=== PATIENT | female | born 1975 | race Caucasian/White ===

== ENCOUNTER → 2021-08-13 | Outpatient (CLI) | payer OTHER ==
[~2021-08-13] MED LIST: ACET325 PO; BIRTH CONTROL PATCH; CEPH500 PO; CETI5 PO; CLARITIN10 MG PO; ERGO400 PO; ESOM20; FEXO180; GLYB2.5; HYDACE5 PO; IBUP800 PO; NYST100P TOP; ONDA4ODT MM; PANT20 PO; PROM25 PO; Percocet 5-3251 EACH PO; Prenatal Compl1 EACH; VALA500 PO
== END | disposition home or self-care (01) ==
LOC: LAB SHORT 11:16
DX: M25.511 Pain in right shoulder (principal)
CPT/HCPCS: 87081

== ENCOUNTER → 2022-08-06 | Outpatient (CLI) | payer OTHER ==
[~2022-08-06] MED LIST changes: +ESCITALOPRAM OX10 MG PO; -ESOM20; +ESOM20 PO; +SIME80CH PO; +SLYND4 MG PO; +ZYRTEC10 M1 PO
== END ==
LOC: PLD 15:17 → LAB SHORT 15:17
DX: D23.61 Other benign neoplasm of skin of right upper limb, including shoulder (principal)
CPT/HCPCS: 88305

== ENCOUNTER 2022-10-08 10:22 | Inpatient (IN) | payer OTHER ==
[~2022-10-08] VITALS: Ht 157.5 cm; Wt 122.6 kg
[2022-10-08 11:09] LABS: BASOPHILS ABSOLUTE AUTO 0.03 K/mm3 (0.00-0.23); BASOPHILS PERCENT AUTO 0 % (0-2); EOSINOPHILS PERCENT AUTO 3 % (0-6); Hemoglobin 12.9 g/dL (11.5-16.0); IMMATURE GRAN ABSOLUTE AUTO 0.02 K/mm3 (0.00-0.10); IMMATURE GRAN PERCENT AUTO 0 % (0-1); LYMPHOCYTES ABSOLUTE AUTO 3.07 K/mm3 (0.84-5.20); LYMPHOCYTES PERCENT AUTO 28 % (21-46); MONOCYTES ABSOLUTE AUTO 0.45 K/mm3 (0.16-1.47); MONOCYTES PERCENT AUTO 4 % (4-13); Mean Corpuscular HGB 28.2 pg (26.0-34.0); Mean Corpuscular HGB Conc 33.1 g/dL (31.5-36.5); Mean Corpuscular Volume 85 fL (80-100); Mean Platelet Volume 9.6 fL (9.1-12.4); NEUTROPHILS ABSOLUTE AUTO 7.05 K/mm3 (1.96-9.15); NEUTROPHILS PERCENT AUTO 65 % (41-73); Platelet Count 356 K/mm3 (150-400); RDW Coefficient Variation 13.6 % (11.7-14.2); RDW Standard Deviation 42.3 fL (35.1-46.3); Red Blood Cell Count 4.57 M/mm3 (3.80-5.20); White Blood Cell Count 10.92 K/mm3 (4.00-11.30)
[2022-10-08 11:50] LABS: Albumin, Blood 3.2 g/dL (3.4-5.0); Albumin/Globulin Ratio 0.8 (0.8-1.8); Bilirubin, Total 0.6 mg/dL (0.1-1.0); C-REACTIVE PROTEIN, EXT RANGE 4.47 mg/dL (0.000-0.300); Calcium, Blood 8.9 mg/dL (8.5-10.1); Creatinine, Blood 0.73 mg/dL (0.40-1.00); Globulin, Blood 4.2 g/dL (2.2-4.0); Total Protein, Blood 7.4 g/dL (6.4-8.2)
[2022-10-08 17:04] LABS: Automated CSF RBC Count 0.002 M/mm3 (0-0); Automated CSF WBC Count 0.667 K/mm3 (0-5)
[2022-10-08 17:07] LABS: RBC Count, CSF 2000 /mm3 (0-0); WBC Count, CSF 667 /mm3 (0-5)
[2022-10-08 17:18] LABS: Automated CSF WBC Count 0.805 K/mm3 (0-5)
[2022-10-08 17:20] LABS: WBC Count, CSF 805 /mm3 (0-5)
[2022-10-08 17:28] LABS: Glucose, Body Fluid 64 mg/dL; Protein, Body Fluid 0.1 g/dL
[2022-10-08 17:34] LABS: RBC Count, CSF 463 /mm3 (0-0)
[2022-10-08 17:35] LABS: Appearance, CSF Hazy (Clear); Color, CSF No Color (No Color)
[2022-10-08 17:36] LABS: Color, CSF No Color (No Color)
[2022-10-08 17:37] LABS: Appearance, CSF Clear (Clear)
[2022-10-08 17:45] LABS: Eosinophils, CSF 2 % (0-0); Lymphocytes, CSF 40 % (40-80); Monocytes, CSF 14 % (15-45); Neutrophils, CSF 44 % (0-6)
[2022-10-08 17:52] LABS: Eosinophils, CSF 1 % (0-0); Lymphocytes, CSF 56 % (40-80); Monocytes, CSF 30 % (15-45); Neutrophils, CSF 13 % (0-6)
[2022-10-08 20:52] LABS: Cryptococcus Neoformans/Gattii Not Detected (NOT DETECT); Enterovirus Not Detected (NOT DETECT); Escherichia Coli K1 Not Detected (NOT DETECT); Haemophilus Influenza Not Detected (NOT DETECT); Herpes Simplex Virus 1 Not Detected (NOT DETECT); Herpes Simplex Virus 2 Detected (NOT DETECT); Human Herpesvirus 6 Not Detected (NOT DETECT); Human Parechovirus Not Detected (NOT DETECT); Listeria Monocytogenes Not Detected (NOT DETECT); Neisseria Meningitidis Not Detected (NOT DETECT); Streptococcus Agalactiae Not Detected (NOT DETECT); Streptococcus Pneumoniae Not Detected (NOT DETECT); Varicella Zoster Virus Not Detected (NOT DETECT)
[2022-10-08 21:40] VITALS: BP 148/83
--- NOTE | 2022-10-08 22:36 | NUR ---
TRANSFER NOTE THIS RN RECEIVED REPORT FROM ELIJAH CURRY IN THE ED VIA PHONE. PATIENT TRANSFERRED TO U 15 AT 2130. PATIENT AMBULATED FROM GURNEY TO BATHROOM AND THEN TO BED. GAIT NOTED TO BE STEADY; HOWEVER, PATIENT IS PAINFUL AND REPORTS STIFFNESS IN NECK. NEURO WNL. MEDICATED PER EMAR FOR PAIN. BP STABLE. TEMP OF 99.0. SPO2 >95% ON RA. HR 90'S, REGULAR. NO TELE. PATIENT ALERT AND ORIENTED FULLY. ABLE TO MAKE NEEDS KNOWN. CPAP CURRENTLY ON. PATIENT GIVEN EXTRA PILLOWS FOR COMFORT. HOB ELEVATED. PATIENT REPOSITIONING SELF IN BED INDEPENDENTLY. BED IN LOWEST POSITION AND CALL LIGHT WITHIN REACH.
[2022-10-09 00:55] VITALS: BP 153/94
[2022-10-09 04:00] VITALS: BP 136/92
--- NOTE | 2022-10-09 05:10 | NUR ---
SHIFT SUMMARY NO ACUTE CHANGES DURING THIS SHIFT. Q4 NEUROS DONE; ALERT AND ORIENTED FULLY. CARTER. FOLLOWING COMMANDS. SENSITIVITY TO LIGHT NOTED. ABLE TO MAKE NEEDS KNOWN. MEDICATING PER EMAR FOR HEADACHE, AND NECK/BACK STIFFNESS/PAIN. PATIENT ABLE TO TRANSFER TO [facility] [place] WITH MINIMAL ASSISTANCE. PAIN NOTED WITH ANY MOVEMENT. SEE EMAR. ON CPAP FOR NOC. NEEDING 1-2L VIA NC TO MAINTAIN SPO2 WHILE LYING FLAT IN BED AND REFUSING CPAP. WHILE SITTING AND AWAKE PATIENT IS ON RA WITH SPO2 >92%. BP STABLE. HR 80-90'S, REGULAR RATE/RHYTHM NOTED. NO TELE. AFEBRILE. DIAPHORETIC AT TIMES. NS INFUSING PER EMAR. BED IN LOWEST POSITION AND CALL LIGHT WITHIN REACH. THIS RN WILL CONTINUE TO MONITOR UNTIL SHIFT CHANGE AT 0700.
[2022-10-09 05:15] LABS: BASOPHILS ABSOLUTE AUTO 0.04 K/mm3 (0.00-0.23); BASOPHILS PERCENT AUTO 0 % (0-2); EOSINOPHILS ABSOLUTE AUTO 0.02 K/mm3 (0.00-0.68); EOSINOPHILS PERCENT AUTO 0 % (0-6); Hematocrit 34.1 % (33.0-51.0); Hemoglobin 11.2 g/dL (11.5-16.0); IMMATURE GRAN ABSOLUTE AUTO 0.05 K/mm3 (0.00-0.10); IMMATURE GRAN PERCENT AUTO 0 % (0-1); LYMPHOCYTES ABSOLUTE AUTO 2.05 K/mm3 (0.84-5.20); LYMPHOCYTES PERCENT AUTO 17 % (21-46); MONOCYTES ABSOLUTE AUTO 0.72 K/mm3 (0.16-1.47); MONOCYTES PERCENT AUTO 6 % (4-13); Mean Corpuscular HGB 28.1 pg (26.0-34.0); Mean Corpuscular HGB Conc 32.8 g/dL (31.5-36.5); Mean Corpuscular Volume 86 fL (80-100); Mean Platelet Volume 9.9 fL (9.1-12.4); NEUTROPHILS ABSOLUTE AUTO 9.23 K/mm3 (1.96-9.15); NEUTROPHILS PERCENT AUTO 76 % (41-73); Platelet Count 325 K/mm3 (150-400); RDW Coefficient Variation 13.9 % (11.7-14.2); RDW Standard Deviation 44.1 fL (35.1-46.3); Red Blood Cell Count 3.99 M/mm3 (3.80-5.20); White Blood Cell Count 12.11 K/mm3 (4.00-11.30)
[2022-10-09 05:35] LABS: Albumin, Blood 2.9 g/dL (3.4-5.0); Albumin/Globulin Ratio 0.8 (0.8-1.8); Bilirubin, Total 0.5 mg/dL (0.1-1.0); Bun/Creatinine Ratio 22.2 (12.0-20.0); Calcium, Blood 7.6 mg/dL (8.5-10.1); Creatinine, Blood 0.72 mg/dL (0.40-1.00); Globulin, Blood 3.8 g/dL (2.2-4.0); Magnesium, Blood 1.9 mg/dL (1.6-2.4); Potassium, Blood 3.5 mmol/L (3.5-5.5); Total Protein, Blood 6.7 g/dL (6.4-8.2)
[2022-10-09 08:42] VITALS: BP 143/89
--- NOTE | 2022-10-09 09:06 | NUR ---
stated nausea. No vomiting. Zofran given, with good relief; she requested some jello and is tolerating it well. Spoke with resident MD regarding possible NSAID for pain relief; the pt takes ibuprofen on a regular basis at home for chronic pain.
--- NOTE | 2022-10-09 10:29 | NUR ---
Call to summer intern[employer] Dr. Gumzan; was able to leave a voice mail regarding pt's persistent nausea and ongoing headache.
--- NOTE | 2022-10-09 10:59 | NUR ---
Dr. Guzman to see pt regarding the persistent headache and nausea.
[2022-10-09 11:25] VITALS: BP 126/90
--- NOTE | 2022-10-09 11:31 | NUR ---
Pt lying quietly in bed, arousable to conversation. She took anti emetic and tramadol p.o. for relief of stated nausea and headache. Vital signs are stable. Assisted to place her home CPAP on.
[2022-10-09 14:55] VITALS: BP 128/90
--- NOTE | 2022-10-09 14:58 | NUR ---
Pt awakened, pushed call light for bathroom assistance and also states headache, pain level 5/10. Given tramadol for pain; she denies nausea at this time. Resting in bed, cool damp washcloth to forehead, lights dimmed in room and blinds closed to keep bright sunlight out. HOB positioned to pt's stated comfort level.
--- NOTE | 2022-10-09 16:51 | NUR ---
Reports that she has no nausea, and headache has gone from 8/10 to 2/10 after dose of prn IV morphine. She is lying on her side in bed, talking with a visitor.
--- NOTE | 2022-10-09 17:48 | NUR ---
Poor appetite at dinner, except for fruit cup. She is tolerating water.
[2022-10-09 19:21] VITALS: BP 142/88
[2022-10-10 02:45] VITALS: BP 122/76
[2022-10-10 03:03] LABS: BASOPHILS ABSOLUTE AUTO 0.04 K/mm3 (0.00-0.23); BASOPHILS PERCENT AUTO 0 % (0-2); EOSINOPHILS ABSOLUTE AUTO 0.19 K/mm3 (0.00-0.68); EOSINOPHILS PERCENT AUTO 2 % (0-6); Hemoglobin 10.3 g/dL (11.5-16.0); IMMATURE GRAN ABSOLUTE AUTO 0.07 K/mm3 (0.00-0.10); IMMATURE GRAN PERCENT AUTO 1 % (0-1); LYMPHOCYTES ABSOLUTE AUTO 3.05 K/mm3 (0.84-5.20); LYMPHOCYTES PERCENT AUTO 32 % (21-46); MONOCYTES ABSOLUTE AUTO 0.71 K/mm3 (0.16-1.47); MONOCYTES PERCENT AUTO 7 % (4-13); Mean Corpuscular HGB 27.7 pg (26.0-34.0); Mean Corpuscular HGB Conc 32.2 g/dL (31.5-36.5); Mean Corpuscular Volume 86 fL (80-100); Mean Platelet Volume 9.6 fL (9.1-12.4); NEUTROPHILS ABSOLUTE AUTO 5.58 K/mm3 (1.96-9.15); NEUTROPHILS PERCENT AUTO 58 % (41-73); Platelet Count 275 K/mm3 (150-400); RDW Coefficient Variation 13.7 % (11.7-14.2); RDW Standard Deviation 43.2 fL (35.1-46.3); Red Blood Cell Count 3.72 M/mm3 (3.80-5.20); White Blood Cell Count 9.64 K/mm3 (4.00-11.30)
[2022-10-10 03:19] LABS: Bun/Creatinine Ratio 13.2 (12.0-20.0); Calcium, Blood 7.9 mg/dL (8.5-10.1); Creatinine, Blood 0.68 mg/dL (0.40-1.00); Potassium, Blood 3.2 mmol/L (3.5-5.5)
--- NOTE | 2022-10-10 06:17 | NUR ---
SHIT SUMMARY NO ACUTE CHANGES OVERNIGHT. PATIENT IS MAKING JOKES WITH STAFF AND IS NOTED TO HAVE LESS PAIN DURING THIS NOC SHIFT THAN PREVIOUS NOC SHIFT WITH THIS RN. PATIENT ON CPAP FOR NOC, BUT OTHERWISE ON RA WITH SPO2 >92%. BP STABLE. HEART RATE/RHYTHM REGULAR 60-80'S. AFEBRILE. PATIENT ABLE TO AMBULATE TO BATHROOM INDEPENDENTLY WITH ASSISTANCE NEEDED FOR IV POLE ONLY. ALERT AND ORIENTED FULLY AND ABLE TO MAKE NEEDS KNOWN. BED IN LOWEST POSITION AND CALL LIGHT WITHIN REACH. THIS RN WILL CONTINUE TO MONITOR UNTIL SHIFT CHANGE AT 0700.
[2022-10-10 07:13] VITALS: BP 133/95
--- NOTE | 2022-10-10 07:14 | NUR ---
Pt is awake, lying in bed on her phone. Denies any pain, including headache, and denies nausea. States that she is feeling a little hungry this morning.
[2022-10-10 08:10] LABS: HIV AB/P24 AG SCREEN Non Reactive (Non Reactive)
--- NOTE | 2022-10-10 11:38 | NUR ---
Pt given a small snack to eat before taking the oral potassium supplement to prevent GI upset.
--- NOTE | 2022-10-10 12:55 | NUR ---
Medicated with Tylenol for headache 08/25.
--- NOTE | 2022-10-10 13:38 | NUR ---
Alert, oriented and pleasantly conversant patient throughout the day, ambulatory to the bathroom without assistance once disconnected from the IV. Her Alexandr has been present often, assisting his with personal care. Pt reports that she has no nausea at all, and her appetite has been good. She has a headache which returns every 4-5 hours and is responsive to Tylenol. She showered this morning and said she felt really good afterwards. In between activity she has been napping, most often with her home CPAP. Vital signs have been stable. Telephone report was given to PATRICIO Lofton. Pt will be transferring to room 210 this afternoon.
[2022-10-10 14:15] VITALS: BP 154/96
--- NOTE | 2022-10-10 14:49 | NUR ---
1415 TO ROOM VIA WHEELCHAI ACCOMPANIED BY . PT REPORTS FRONTAL HEADACHE BUT REPORTS IT HAS LESSENED SINCE WHEN ADMITTED. PT PLACED ON CONT BIOX, ORIENTED TO ROOM. PT DENIES ANY NEES AT THIS TIME
--- NOTE | 2022-10-10 18:03 | NUR ---
pt reports headache comes in waves, but has lessened after morphine given. pt alert and oriented. home cpap in place as patient tells me she would like to sleep at this time
[2022-10-10 19:14] VITALS: BP 128/81
[2022-10-11 04:17] VITALS: BP 161/94
--- NOTE | 2022-10-11 05:36 | NUR ---
SHIFT SUMMARY PT A&OX4, AND COOPERATIVE WITH CARE. NO ACUTE CHANGES. MEDICATED PT FOR HEADACHE WITH IMITREX/TYLENOL/MORPHINE. CONT BIOX OUTSIDE OF ROOM, PT WEARING HOME CPAP TO SLEEP. TOLERATING PO INTAKE, NO NAUSEA. INDEPENDENT IN ROOM/BATHROOM. AT BEDSIDE. CALLS APPROPRIATELY, CALL LIGHT WITHIN REACH.
[2022-10-11 05:37] LABS: Bun/Creatinine Ratio 9.4 (12.0-20.0); Creatinine, Blood 0.75 mg/dL (0.40-1.00); Potassium, Blood 3.2 mmol/L (3.5-5.5)
[2022-10-11 07:28] VITALS: BP 148/90
--- NOTE | 2022-10-11 13:11 | NUR ---
NERUO CHECKS INTACT, STRENGTH ON UE'S AND LE'S EQUAL BILAT, A&OX4, C/O RODRIGUEZ 07/25, MEDICATED W/ TYLENOL PER PT REQUEST.
[2022-10-11 15:21] VITALS: BP 144/75
--- NOTE | 2022-10-11 16:58 | NUR ---
SUMMARY PT C/O H/A 07/25 ALL DAY, INDEPENDENT IN ROOM, REPORTED FEELING "BETTER" THIS AM, STATES SHE IS EATING MORE TODAY, NEURO CHECKS WNL, REPORTS HAVING LIGHT SENSITIVITY, SLEEPING ON AND OFF T/O THE DAY, WEARS CPAP WHEN SLEEPING, REPORTS H/A FEELS WORSE IN THE AFTERNOON, DR. ROSE AWARE, ORDERED OXYCODONE FOR H/A, PT CURRENTLY SLEEPING AFTER MEDICATED TAB, NO OTHER CHANGES THIS SHIFT.
[2022-10-11 19:13] VITALS: BP 128/72
--- NOTE | 2022-10-12 04:08 | NUR ---
SHIFT SUMMARY PT A&OX4, AND COOPERATIVE WITH CARE. NO ACUTE CHANGES. VSS. MEDICATED FOR PAIN ONCE. PT WALKED THE ARIAS WITH . TOLERATING PO INTAKE. INDEPENDENT IN ROOM/BATHROOM. CALLS APPROPRIATELY, CALL LIGHT WITHIN REACH. REPORT GIVEN TO DESTINY CURRY.
[2022-10-12 04:59] VITALS: BP 142/87
[2022-10-12 07:30] VITALS: BP 140/60
--- NOTE | 2022-10-12 07:38 | NUR ---
assumed care of pt 0430.pt up in halls this am.
[2022-10-12 07:45] LABS: Bun/Creatinine Ratio 9.5 (12.0-20.0); Calcium, Blood 8.4 mg/dL (8.5-10.1); Creatinine, Blood 0.73 mg/dL (0.40-1.00); Potassium, Blood 3.3 mmol/L (3.5-5.5)
[2022-10-12] MEDS ORDERED: Acetaminophen650 M1 PO (09:54)
[2022-10-12] MEDS ORDERED: VALA500 PO (09:56)
[2022-10-12] MEDS ORDERED: ONDA4ODT MM (10:01)
[2022-10-12] MEDS ORDERED: ROXYBOND5 MG PO (10:02)
--- NOTE | 2022-10-12 11:47 | NUR ---
DISCHARGE SUMMARY PT A&OX4, VSS/RA, SOLA PO, VOID, AMB INDEPENDENTLY, PAIN MANAGED WITH TYLENOL, POWERGLIDE DC'D. DC INS PROVIDED. PT REP UNDERSTANDING THOSE INSTRUCTIONS INCLUDING FU WITH PCP, MEDS AT [id number] AID PHARM/SCRIPT TO PT. LEFT FLOOR WITH , WITH ALL PERSONAL POSSESSIONS, DECLINING WC.
== END 2022-10-12 11:30 | disposition home or self-care (01) | DRG 871 ==
LOC: ER 10:22 → PCU 20:43 → SURS 10-10 13:44
PROVIDERS: Family Medicine Adult Medicine; Nurse Practitioner Acute Care; Physician Assistant; Student in an Organized Health Care Education/Training Program; ADMIT Internal Medicine
PROC: 3E03329 Introduction of Other Anti-infective into Peripheral Vein, Percutaneous Approach (ICD-10-PCS; principal; 2022-10-08)
PROC: 5A09357 Assistance with Respiratory Ventilation, Less than 24 Consecutive Hours, Continuous Positive Airway Pressure (ICD-10-PCS; 2022-10-08)
PROC: 009U3ZZ Drainage of Spinal Canal, Percutaneous Approach (ICD-10-PCS; 2022-10-08)
DX: A41.9 Sepsis, unspecified organism (principal); B00.3 Herpesviral meningitis; Z68.43 Body mass index [BMI] 50.0-59.9, adult; D84.9 Immunodeficiency, unspecified; I82.409 Acute embolism and thrombosis of unspecified deep veins of unspecified lower extremity; F41.8 Other specified anxiety disorders; K21.9 Gastro-esophageal reflux disease without esophagitis; E87.6 Hypokalemia; G43.909 Migraine, unspecified, not intractable, without status migrainosus; G47.33 Obstructive sleep apnea (adult) (pediatric); E66.01 Morbid (severe) obesity due to excess calories; H53.149 Visual discomfort, unspecified; I10 Essential (primary) hypertension; E86.0 Dehydration; K27.9 Peptic ulcer, site unspecified, unspecified as acute or chronic, without hemorrhage or perforation; Z90.710 Acquired absence of both cervix and uterus; Z90.49 Acquired absence of other specified parts of digestive tract; Z98.890 Other specified postprocedural states; Z86.19 Personal history of other infectious and parasitic diseases; Z91.199 Patient's noncompliance with other medical treatment and regimen due to unspecified reason; Z88.8 Allergy status to other drugs, medicaments and biological substances; Z79.899 Other long term (current) drug therapy; Z79.891 Long term (current) use of opiate analgesic; Z87.891 Personal history of nicotine dependence
CPT/HCPCS: 36415; 62270; 70450; 80048; 80053; 81025; 82945; 83735; 84157; 85025; 86140; 87040; 87070; 87205; 87389; 87483; 89051; 94660; 94762; 96365-59; 96366-59; 96368; 96375-59; 99285-25; A9270; C1751; J0133; J0696; J1170; J1650; J1790; J1885; J2270; J2405; J2765; J3370; J7030; J7050; J7060; J8499

== ENCOUNTER 2023-06-01 19:56 | Emergency (ER) | payer OTHER ==
[~2023-06-01] VITALS: Ht 157.5 cm; Wt 120.7 kg
[~2023-06-01 19:56] MED LIST changes: +Acetaminophen650 M1 PO; +ROXYBOND5 MG PO
[2023-06-01] MEDS ORDERED: CYCL10 PO (20:00)
[2023-06-01 20:01] VITALS: BP 133/83
[2023-06-01] MEDS ORDERED: ONDA4ODT MM (20:53)
== END 2023-06-01 22:08 | disposition home or self-care (01) ==
LOC: ER 19:56
DX: R11.2 Nausea with vomiting, unspecified (principal); I10 Essential (primary) hypertension; Z88.8 Allergy status to other drugs, medicaments and biological substances; Z79.899 Other long term (current) drug therapy
CPT/HCPCS: 96361; 96374; 99284-25; A9270; J2405; J7030